=== PATIENT | male | born 1960 | race Caucasian/White ===

== ENCOUNTER 2019-01-04 07:47 | Day surgery (SDC) | payer BC ==
[2019-01-04] MEDS ORDERED: Propofol 200 MG/20 ML SDV ONE (08:04)
[2019-01-04] MEDS ORDERED: fentaNYL 100 MCG/2 ML SDV ONE (08:04)
[2019-01-04] MEDS ORDERED: Midazolam 1 MG/ML 2 ML SDV ONE (08:04)
[2019-01-04] MEDS ORDERED: Lactated Ringers 1,000 ML IV SCH (08:45)
[2019-01-04] MEDS ORDERED: Sodium Chloride 0.9% 1,000 ML IV ONE (09:00)
--- NOTE | 2019-01-05 08:30 | OR ---
DATE OF PROCEDURE: 01/04/2019 PREOPERATIVE DIAGNOSIS: Blood in stool. POSTOPERATIVE DIAGNOSES: Pandiverticulosis; hemorrhoids; blood in stool, etiology unknown. PROCEDURE: Colonoscopy to the cecum. SURGEON: Elver Cantor MD ANESTHESIA: IV anesthesia with monitored anesthesia care. INDICATION: This 58-year-old white male is referred for a colonoscopy because of blood in his stool. He has been passing blood on and off for about 5 weeks. His last colonoscopic exam he says was done 5 years ago in [place], [place]. I counseled him for a colonoscopy with possible biopsy and/or polypectomy including risks and alternatives, and he gave his informed consent to proceed. DESCRIPTION OF PROCEDURE: The patient was placed in the left lateral decubitus position. IV anesthesia was administered by the Anesthesia Service. Time-out was held. A rectal exam was performed, which was unremarkable. The flexible video Olympus colonoscope was introduced through his anus, up his rectum, and out his colon all the way to the cecum. En route, we saw both left and right-sided diverticula. There was no bleeding or inflammation associated with any of them. Once the cecum was reached, the scope was slowly withdrawn examining the mucosa throughout. No additional mucosal abnormalities were noted. The scope was retroflexed in the rectum with the distal rectum appearing fairly unremarkable. The scope was straightened and brought out through the anus where we could see some minor hemorrhoidal tissue. Scope was then removed. He tolerated the procedure well. Elver Cantor MD /[id number] [facility]
== END 2019-01-04 11:14 | disposition home or self-care (01) ==
LOC: JP.SDS 07:47
PROVIDERS: ATTEND Surgery
DX: K92.1 Melena (principal); K57.30 Diverticulosis of large intestine without perforation or abscess without bleeding; K64.9 Unspecified hemorrhoids; I10 Essential (primary) hypertension; E78.00 Pure hypercholesterolemia, unspecified
CPT/HCPCS: 45378; J2250; J2704; J3010; J7120